=== PATIENT | female | born 1995 | race Hispanic/Latino ===

== ENCOUNTER 2019-01-16 13:07 | Emergency (ER) | payer OTHER, SELFPAY ==
[2019-01-16] MEDS ORDERED: Lidocaine 1% PF 5 ML VIAL ONE (13:25)
== END 2019-01-16 13:52 | disposition home or self-care (01) ==
LOC: SCSER 13:07
DX: L02.415 Cutaneous abscess of right lower limb (principal)
CPT/HCPCS: 10060; J2001